=== PATIENT | female | born 1960 | race Caucasian/White ===

== ENCOUNTER 2017-12-27 09:18 | Emergency (ER) | payer OTHER ==
[2017-12-27 09:43] VITALS: BP 131/71
--- NOTE | 2017-12-27 10:11 | UC ---
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 - History of Current Complaint Chief Complaint: UCRespiratory Stated Complaint: ACHY,TIRED,SORE THROAT Time Seen by Provider: 12/27/17 09:42 Hx Obtained From: Patient Hx Last Menstrual Period: n/a ?: No Onset/Duration: Sudden Onset, Lasting Days - 1 Severity: Moderate Pain Intensity: 6 Associated Signs & Symptoms: Positive: Dysphagia, Hoarseness, Rash - Allergies/Home Medications Allergies/Adverse Reactions: Allergies Allergy/AdvReac Type Severity Reaction Status Date / Time Banana Allergy Vomiting Verified 12/27/17 09:45 WALNUTS Allergy ROOF OF Uncoded 04/19/16 19:36 MOUTH SWELLS Home Medications: Home Medications Levocetirizine Dihydrochloride [Xyzal Allergy 24Hr] 5 mg PO DAILY 12/27/17 [ History Confirmed 12/27/17] PMH/Surg Hx/FS Hx/Imm Hx Previously Healthy: Yes - Surgical History Surgical History: Yes Surgery Procedure, Year, and Place: TUBAL LIGATION;. ABLATION;. RIGHT BREAST BX - Family History Known Family History: Positive: Respiratory Disease - Social History Alcohol Use: Weekly Substance Use Type: None Smoking Status (MU): Never Smoked Tobacco - Immunization History Most Recent Influenza Vaccination: Season Most Recent Tetanus Shot: 12/2014 Review of Systems Constitutional: Fatigue Skin: Rash Eyes: Eye Redness ENT: Sore Throat, Sinus Pain/Tenderness Respiratory: Cough Cardiovascular: Negative Gastrointestinal: Negative Genitourinary: Negative Motor: Negative Neurovascular: Negative Musculoskeletal: Myalgia Neurological: Negative Psychological: Negative Is Patient Immunocompromised?: No All Other Systems Reviewed And Are Negative: Yes Physical Exam Triage Information Reviewed: Yes Appearance: Well-Nourished, Ill-Appearing, Pain Distress Vital Signs: Initial Vital Signs Temp 98.2 F 12/27/17 09:35 Pulse 74 12/27/17 09:35 Resp 16 12/27/17 09:35 BP 131/71 12/27/17 09:35 Pulse Ox 99 12/27/17 09:35 Vital Signs Reviewed: Yes Eyes: Positive: Conjunctiva Inflamed ENT: Positive: Pharynx normal, TMs normal, Sinus tenderness Dental Exam: Normal Neck exam: Normal Neck: Positive: Supple, Nontender, Enlarged Nodes @ - right sided enlargement of singular node under mandible Respiratory Exam: Normal Respiratory: Positive: Chest non-tender, Lungs clear, Normal breath sounds Cardiovascular Exam: Normal Cardiovascular: Positive: RRR, No Murmur, Pulses Normal Abdominal Exam: Normal Abdomen Description: Positive: Nontender, No Organomegaly, Soft Bowel Sounds: Positive: Present Musculoskeletal Exam: Normal Musculoskeletal: Positive: Strength Intact, ROM Intact, No Edema Neurological Exam: Normal Neurological: Positive: Alert, Muscle Tone Normal Psychological Exam: Normal Skin Exam: Normal Throat Pain/Nasal Course/Dx - Course Course Of Treatment: hx obtained, exam performed, meds reviewed, flu swab obtained and is negative - Differential Dx/Diagnosis Differential Diagnosis/HQI/PQRI: Otitis Media, Pharyngitis, Sinusitis, URI Provider Diagnoses: viral syndrome Discharge - Discharge Plan Condition: Stable Disposition: HOME Patient Education Materials: Viral Syndrome (ED) Referrals: Cristal Aparicio SNAPPER ON [Primary Care Provider] - Additional Instructions: 1. Your symptoms are viral in nature, your flu swab was negative 2. I recommend rest, Increased fluids 3. Ibuprofen for pain/fever. 4. I have given some prednisone to start tomorrow for inflammation. 5. follow up if your symtpoms are not improving in the next 2-3 days.
== END 2017-12-27 10:35 | disposition home or self-care (01) ==
LOC: UCCORT 09:18
DX: B34.9 Viral infection, unspecified (principal)
CPT/HCPCS: 87502; 99212; G0463

== ENCOUNTER 2018-12-25 16:47 | Emergency (ER) | payer OTHER ==
[2018-12-25 18:46] VITALS: BP 149/68
[2018-12-25 19:02] LABS: Influenza A Molecular POSITIVE (Negative)
--- NOTE | 2018-12-25 19:11 | UC ---
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, chills, st, ear ache body aches last night--did have flu vaccine--her is immune suppressed secondary to kidney transplant - History of Current Complaint Chief Complaint: UCGeneralIllness Stated Complaint: COUGH,FEVER,HEADACHE Time Seen by Provider: 12/25/18 19:03 Hx Obtained From: Patient Hx Last Menstrual Period: n/a ?: No Onset/Duration: Sudden Onset, Lasting Days - 1 Pain Intensity: 6 Pain Scale Used: 0-10 Numeric Associated Signs & Symptoms: Positive: Fever, Myalgia, Cough, Sore Throat, Nasal Congestion, Headache Related Hx: Possible Flu/Infectious Exposure - Allergy/Home Medications Allergies/Adverse Reactions: Allergies Allergy/AdvReac Type Severity Reaction Status Date / Time banana AdvReac Vomiting Verified 12/25/18 18:47 WALNUTS Allergy ROOF OF Uncoded 12/25/18 18:47 MOUTH SWELLS Home Medications: Home Medications Vitamin D/Weekly 50,000 unit WEEKLY 12/25/18 [History Confirmed 12/25/18] PMH/Surg Hx/FS Hx/Imm Hx Previously Healthy: No Psychological History: Depression - Surgical History Surgical History: Yes Surgery Procedure, Year, and Place: TUBAL LIGATION;. ABLATION;. RIGHT BREAST BX - Family History Known Family History: Positive: Respiratory Disease - Social History Occupation: Employed Part-time Lives: With Family Alcohol Use: Weekly Alcohol Amount: 2-5 beers about 4-5 days a week Substance Use Type: None Smoking Status (MU): Never Smoked Tobacco - Immunization History Most Recent Influenza Vaccination: Season Most Recent Tetanus Shot: 12/2014 Review of Systems All Other Systems Reviewed And Are Negative: Yes Constitutional: Positive: Fever, Chills, Fatigue Skin: Positive: Negative Eyes: Positive: Negative ENT: Positive: Sore Throat, Ear Ache, Nasal Discharge Respiratory: Positive: Cough Cardiovascular: Positive: Negative Gastrointestinal: Positive: Negative Genitourinary: Positive: Negative Motor: Positive: Negative Neurovascular: Positive: Negative Musculoskeletal: Positive: Arthralgia, Myalgia Neurological: Positive: Headache Psychological: Positive: Negative Is Patient Immunocompromised?: No Physical Exam Triage Information Reviewed: Yes Appearance: Well-Nourished, Ill-Appearing, Pain Distress Vital Signs: Initial Vital Signs Temp 99.9 F 12/25/18 18:43 Pulse 100 12/25/18 18:43 Resp 17 12/25/18 18:43 BP 149/68 12/25/18 18:43 Pulse Ox 95 12/25/18 18:43 Vital Signs Reviewed: Yes Eye Exam: Normal Eyes: Positive: Conjunctiva Clear ENT Exam: Normal ENT: Positive: Normal ENT inspection, Hearing grossly normal, Pharynx normal, Nasal congestion, TMs normal, Uvula midline. Negative: Tonsillar swelling, Tonsillar exudate, Trismus, Muffled voice, Hoarse voice, Dental tenderness, Sinus tenderness Dental Exam: Normal Neck exam: Normal Neck: Positive: Supple, Nontender, No Lymphadenopathy Respiratory Exam: Normal Respiratory: Positive: Chest non-tender, Lungs clear, Normal breath sounds, No respiratory distress, No accessory muscle use Cardiovascular Exam: Normal Cardiovascular: Positive: RRR, No Murmur, Pulses Normal, Brisk Capillary Refill Musculoskeletal Exam: Normal Musculoskeletal: Positive: Strength Intact, ROM Intact, No Edema Neurological Exam: Normal Neurological: Positive: Alert, Muscle Tone Normal Psychological Exam: Normal Skin Exam: Normal Diagnostics - Laboratory Diagnostic Studies Completed/Ordered: Influenza A (+) Flu Course/Dx - Course Course Of Treatment: increase fluids, rest, ibuprofen tylenol, tamiflu advised patient to call husbands transplant MD about tamiflu as well, patient advised no work this week - Differential Dx/Diagnosis Provider Diagnosis: Influenza A Discharge - Sign-Out/Discharge Documenting (check all that apply): Patient Departure All imaging exams completed and their final reports reviewed: No Studies - Discharge Plan Condition: Stable Disposition: HOME Prescriptions: Oseltamivir CAP* [Tamiflu CAP*] 75 mg PO BID #9 cap Patient Education Materials: Acetaminophen (By mouth), Ibuprofen (By mouth), Influenza (ED), Hypertension (ED) Forms: *Work Release Referrals: Cristal Aparicio NP [Primary Care Provider] - 1 Week Additional Instructions: Call you husbands transplant doctor at let them know he has been exposed to the flu - Billing Disposition and Condition Condition: STABLE Disposition: Home
[2018-12-25] MEDS ORDERED: Oseltamivir CAP* 75 MG CAP PO ONE (19:12)
== END 2018-12-25 19:24 | disposition home or self-care (01) ==
LOC: UCCORT 16:47
DX: J10.1 Influenza due to other identified influenza virus with other respiratory manifestations (principal); Z91.018 Allergy to other foods
CPT/HCPCS: 99212; A9270-GY; G0463

== ENCOUNTER 2019-01-18 16:57 | Emergency (ER) | payer OTHER ==
[2019-01-18 18:27] VITALS: BP 131/76
--- NOTE | 2019-01-18 19:05 | UC ---
Back Pain HPI - HPI Summary HPI Summary: The patient is a 58-year-old female with the onset of she states it feels like bad muscle spasms. She does not have any midline bony pain. She has no leg pain or paresthesias. She denies any bowel or bladder dysfunction. She tried one of her 's gabapentin without relief. She has a history of MS as well as asthma. She has a long history of microscopic hematuria and has been seen by urologist for this. - History of Current Complaint Chief Complaint: UCBackPain Stated Complaint: BACK PAIN Time Seen by Provider: 01/18/19 19:04 Hx Obtained From: Patient Hx Last Menstrual Period: n/a Onset/Duration: Gradual Onset, Lasting Hours Timing: Intermittent Severity Initially: Moderate Severity Currently: Moderate Pain Intensity: 6 Pain Scale Used: 0-10 Numeric Back Pain: Is Diffuse Character: Aching, Throbbing, Spasmodic Aggravating Factor(s): Nothing Alleviating Factor(s): Nothing Associated Signs And Symptoms: Positive: Negative - Allergies/Home Medications Allergies/Adverse Reactions: Allergies Allergy/AdvReac Type Severity Reaction Status Date / Time banana AdvReac Vomiting Verified 01/18/19 18:16 WALNUTS Allergy ROOF OF Uncoded 01/18/19 18:16 MOUTH SWELLS Home Medications: Home Medications Gabapentin CAP(*) [Neurontin 400 mg CAP(*)] 400 mg ONCE 01/18/19 [History Confirmed 01/18/19] PMH/Surg Hx/FS Hx/Imm Hx Previously Healthy: Yes Respiratory History: Asthma Neurological History: Other Other Neurological History: MS - Surgical History Surgical History: Yes Surgery Procedure, Year, and Place: TUBAL LIGATION;. ABLATION;. RIGHT BREAST BX - Family History Known Family History: Positive: Respiratory Disease - Social History Alcohol Use: Weekly Alcohol Amount: 2-5 beers about 4-5 days a week Substance Use Type: None Smoking Status (MU): Never Smoked Tobacco - Immunization History Most Recent Influenza Vaccination: Season Most Recent Tetanus Shot: 12/2014 Review of Systems All Other Systems Reviewed And Are Negative: Yes Constitutional: Positive: Negative Skin: Positive: Negative Eyes: Positive: Negative ENT: Positive: Negative Respiratory: Positive: Negative Cardiovascular: Positive: Negative Gastrointestinal: Positive: Negative Genitourinary: Positive: Negative Motor: Positive: Negative Neurovascular: Positive: Negative Musculoskeletal: Positive: Myalgia Neurological: Positive: Negative Psychological: Positive: Negative Physical Exam Triage Information Reviewed: Yes Appearance: Well-Appearing, No Pain Distress, Well-Nourished Vital Signs: Initial Vital Signs Temp 98.4 F 01/18/19 18:18 Pulse 75 01/18/19 18:18 Resp 16 01/18/19 18:18 BP 131/76 01/18/19 18:18 Pulse Ox 97 01/18/19 18:18 Vital Signs Reviewed: Yes Eyes: Positive: Conjunctiva Clear ENT: Positive: Hearing grossly normal. Negative: Nasal congestion, Nasal drainage, Trismus, Muffled voice, Sinus tenderness, Uvula midline Neck: Positive: Supple, Nontender, No Lymphadenopathy Respiratory: Positive: Lungs clear, Normal breath sounds, No respiratory distress Cardiovascular: Positive: RRR, No Murmur Musculoskeletal: Positive: ROM Intact, No Edema Neurological: Positive: Alert Psychological Exam: Normal Skin Exam: Normal Images Front/Back of Body, Lg ([place]): 1 - pain here Back Pain Course/Dx - Differential Dx/Diagnosis Provider Diagnosis: Back pain of thoracolumbar region Discharge - Sign-Out/Discharge Documenting (check all that apply): Patient Departure All imaging exams completed and their final reports reviewed: No Studies - Discharge Plan Condition: Stable Disposition: HOME Prescriptions: Cyclobenzaprine (NF) [Cyclobenzaprine 5 MG (NF)] 5 mg PO TID PRN #15 tab PRN Reason: Spasms - Back Patient Education Materials: Back Pain (ED) Referrals: Cristal Aparicio NP [Primary Care Provider] - 5 Days (if not better) Additional Instructions: I suspect muscle strain/spasm ibuprofen 200 mg 3 pills 4x day with food for pain recheck for new or worsening symtpoms - Billing Disposition and Condition Condition: STABLE Disposition: Home
== END 2019-01-18 19:23 | disposition home or self-care (01) ==
LOC: UCCORT 16:57
DX: M54.5 Low back pain (principal); M54.6 Pain in thoracic spine; J45.909 Unspecified asthma, uncomplicated; Z91.018 Allergy to other foods
CPT/HCPCS: 81003; 99211; G0463

== ENCOUNTER 2019-05-05 16:52 | Emergency (ER) | payer OTHER ==
--- NOTE | 2019-05-05 17:19 | UC ---
Throat Pain/Nasal Valentin HPI - HPI Summary HPI Summary: 58 y/o female presents to the urgent care c/o sold symptoms, head congestion and mild diarrhea that started on 04/30/2019. She has experienced some chills and night sweats. Then yellowish nasal discharge, sinus pressure and pain and moderate PND developed. Pt w/ Hx of sinusitis. Yesterday she developed Rt ear pain. She has been taken Mucinex/Alkazeltser and Coridin PO to alleviate symptoms. She had mild cough and wheezing last night. Sinus pain is 4/10. diarrhea resolved about 2 days ago. Pt deneis fever, SOB, wheezing today, chest pain, abdominal pain, N/V/D. - History of Current Complaint Stated Complaint: SINUS COMPLAINT Time Seen by Provider: 05/05/19 17:18 Hx Obtained From: Patient Hx Last Menstrual Period: n/a ?: No Onset/Duration: Gradual Onset, Lasting Days - 1 week, Still Present, Worse Since - yesterday Severity: Moderate Pain Intensity: 4 Pain Scale Used: 0-10 Numeric Cough: Nonproductive Associated Signs & Symptoms: Positive: Wheezing - mild last night, resolved today, Sinus Discomfort, Nasal Discharge - yellowish. Negative: Dysphagia, Hoarseness, Fever, Vomiting - Epiglottits Risk Factors Epiglottis Risk Factors: Negative - Allergies/Home Medications Allergies/Adverse Reactions: Allergies Allergy/AdvReac Type Severity Reaction Status Date / Time banana AdvReac Vomiting Verified 01/18/19 18:16 hay fever Allergy Runny Nose Uncoded 05/05/19 17:29 WALNUTS Allergy ROOF OF Uncoded 01/18/19 18:16 MOUTH SWELLS Home Medications: Home Medications Chlorpheniramine/Dextromethorp [Coricidin Hbp Cough & Cold Tab] 2 tab PO ONCE PRN 05/05/19 [History Confirmed 05/05/19] Dm/PE/Acetaminophen/Chlorphenr [Margo-Ellsworth Plus Cld-Cough Cp] 1 cap PO Q4H PRN 05/05/19 [History Confirmed 05/05/19] guaiFENesin [Mucinex] 600 mg PO BID PRN 05/05/19 [History Confirmed 05/05/19] PMH/Surg Hx/FS Hx/Imm Hx Previously Healthy: Yes Respiratory History: Asthma Other Neurological History: MS - Surgical History Surgical History: Yes Surgery Procedure, Year, and Place: TUBAL LIGATION;. ABLATION;. RIGHT BREAST BX - Family History Known Family History: Positive: Diabetes, Respiratory Disease - Social History Occupation: Employed Full-time Lives: With Family Alcohol Use: Weekly Alcohol Amount: 2-5 beers about 4-5 days a week Substance Use Type: None Smoking Status (MU): Never Smoked Tobacco - Immunization History Most Recent Influenza Vaccination: Season Most Recent Tetanus Shot: 12/2014 Review of Systems All Other Systems Reviewed And Are Negative: Yes Constitutional: Positive: Negative Skin: Positive: Negative Eyes: Positive: Negative ENT: Positive: Ear Ache - B/l ear pressure, Nasal Discharge - yellowish, Sinus Congestion, Sinus Pain/Tenderness, Other - moderate yellowish PND Respiratory: Positive: Cough - dry Cardiovascular: Positive: Negative Gastrointestinal: Positive: Negative Genitourinary: Positive: Negative Motor: Positive: Negative Neurovascular: Positive: Negative Musculoskeletal: Positive: Negative Neurological: Positive: Headache Psychological: Positive: Negative Is Patient Immunocompromised?: No Physical Exam - Summary Physical Exam Summary: Vitals: reviewed General: Well developed, well-nourished female patient with NAD. Head and face: Normocephalic and atraumatic, Positive tenderness over the frontal and maxillary sinuses.. Eyes: PERRLA, EOMI x 2. Normal conjunctiva. No eye discharge. ENT: Ears and TM with normal limits. Nose: edematous and erythematous nasal mucosa with with yellowish discharge and erythematous mucosa. Pharynx with erythema, no exudate. Neck: Supple, no JVD, no carotid bruits and no lymphadenopathy. Lungs: clear, no rales, no rhonchi, no wheezes. CVS: RRR, S1 and S2 present no murmurs or gallops appreciated. Abdomen: soft nontender with positive bowel sounds. Extremities: no edema noted. Neuro: WNL. Skin: warm and dry Triage Information Reviewed: Yes Throat Pain/Nasal Course/Dx - Course Course Of Treatment: 58 y/o female presents to the urgent care c/o sold symptoms, head congestion and mild diarrhea that started on 04/30/2019. She has experienced some chills and night sweats. Then yellowish nasal discharge, sinus pressure and pain and moderate PND developed. Pt w/ Hx of sinusitis. Yesterday she developed Rt ear pain. She has been taken Mucinex/Alkazeltser and Coridin PO to alleviate symptoms. She had mild cough and wheezing last night. Sinus pain is 4/10. diarrhea resolved about 2 days ago. Pt deneis fever, SOB, wheezing today, chest pain, abdominal pain, N/V/D. Hx obtained. Pt hemodynamically stable, O2Sat:98%. pt w/ possible bacterial sinusitis on examination. Pt with 1 week of symptoms getting worse. Pt Rx Amoxicillin PO and flonase nasal spray. Advised to continue w/ Robistussin PO for cough. Discharge instructions explained to Pt. Advised to Return to the clinic or PCP if symptoms do not improve.Pt understood and agreed with plan of care. - Differential Dx/Diagnosis Differential Diagnosis/HQI/PQRI: Influenza, Laryngitis, Pharyngitis, Sinusitis, Tonsillitis, URI Provider Diagnosis: Acute bacterial sinusitis Discharge - Sign-Out/Discharge Documenting (check all that apply): Patient Departure - d/C home All imaging exams completed and their final reports reviewed: No Studies - Discharge Plan Condition: Stable Disposition: HOME Prescriptions: Amoxicillin PO (*) [Amoxicillin 875 MG (*)] 875 mg PO BID #10 tab Fluticasone NASAL SPRAY 50MCG* [Flonase NASAL SPRAY 50MCG*] 2 spray BOTH NARES DAILY #1 btl Patient Education Materials: Sinusitis (ED) Referrals: Cristal Aparicio FURNITURE MANAGER [Primary Care Provider] - 3 Days Additional Instructions: 1- Please increase fluid intake and rest. take full course of antibiotic to avoid resistance. Take yogurts w/ probiotics or Culturelle to protect your GI system 2-Use Flonase nasal spray as directed to help drain fluid. Also buy saline drops to clear sinuses 3-Continue taking Robitusin PO to alleviate cough. If wheezing develops starts using your albuterol inhaler 4-Please f/u w/ your PCP in 3 days if symptoms do not improve for further management and treatment - Billing Disposition and Condition Condition: STABLE Disposition: Home
[2019-05-05 17:28] VITALS: BP 132/71
== END 2019-05-05 18:18 | disposition home or self-care (01) ==
LOC: UCCORT 16:52
DX: J01.90 Acute sinusitis, unspecified (principal); B96.89 Other specified bacterial agents as the cause of diseases classified elsewhere; R19.7 Diarrhea, unspecified; H92.01 Otalgia, right ear; J30.1 Allergic rhinitis due to pollen; Z91.018 Allergy to other foods
CPT/HCPCS: 99212; G0463